=== PATIENT | male | born 1955 | race Hispanic/Latino ===

== ENCOUNTER 2025-04-20 08:19 | Outpatient (CLI) | payer MEDICARE | END 2025-04-20 08:20 | disposition home or self-care (01) | LOC: CSHMRI 08:19 | PROVIDERS: ATTEND Internal Medicine Hematology & Oncology | DX: C65.1 Malignant neoplasm of right renal pelvis (principal); D50.0 Iron deficiency anemia secondary to blood loss (chronic); C79.51 Secondary malignant neoplasm of bone; C49.4 Malignant neoplasm of connective and soft tissue of abdomen; E27.8 Other specified disorders of adrenal gland | CPT/HCPCS: 71552; 72197; 74183 ==